=== PATIENT | male | born 2000 | race Caucasian/White ===

== ENCOUNTER 2020-03-27 10:43 | Emergency (ER) | payer BC ==
[2020-03-27] MEDS ORDERED: LIDOCAINE 1% W/EPI 1:100,000 MDV 20 ML VIAL ONE (11:39)
[2020-03-27] MEDS ORDERED: HYDROCODONE/APAP 7.5/325 MG TAB ONE (11:59)
--- NOTE | 2020-03-27 12:24 | RAD REPORT ---
EXAM DESCRIPTION: RAD - Foot Right 3 View - 03/27/2020 11:54 am CLINICAL HISTORY: Right foot pain status post injury FINDINGS: No fracture or dislocation is seen. No radiopaque foreign body seen
--- NOTE | 2020-03-27 12:25 | RAD REPORT ---
EXAM DESCRIPTION: RAD - Foot Left 3 View - 03/27/2020 11:54 am CLINICAL HISTORY: Left Foot pain FINDINGS: No fracture or dislocation is seen. No radiopaque foreign body seen
--- NOTE | 2020-03-27 13:05 | ER ---
Nurse's Notes [facility] Name: William Blum Age: 20 yrs Sex: Male : 2000 Arrival Date: 03/27/2020 Time: 10:46 Bed 2 Private MD: Diagnosis: Puncture wound without foreign body of foot-right;Laceration without foreign body of foot-left Presentation: 03/27 10:49 Chief complaint: Patient states: left foot laceration with glass and stepped on a nail sv on the right foot last night. Coronavirus screen: Client denies travel out of the [place] in the last 14 days. At this time, the client does not indicate any symptoms associated with coronavirus-19. Ebola Screen: No symptoms or risks identified at this time. Risk Assessment: Do you want to hurt yourself or someone else? Patient reports no desire to harm self or others. Onset of symptoms was March 26, 2020. 10:49 Method Of Arrival: Wheelchair sv 10:49 Acuity: BELKIS 3 sv 10:51 Initial Sepsis Screen: Does the patient meet any 2 criteria? No. Patient's initial sv sepsis screen is negative. Does the patient have a suspected source of infection? No. Patient's initial sepsis screen is negative. Historical: - Allergies: 10:50 No Known Allergies; sv - PMHx: 10:50 None; sv - PSHx: 10:50 None; sv - Immunization history:: Adult Immunizations up to date, Last tetanus immunization: up to date. - Social history:: Smoking status: Patient reports the use of cigarette tobacco products, smokes one pack cigarettes per day. Screenin:09 Abuse screen: Denies threats or abuse. Denies injuries from another. Nutritional zb screening: No deficits noted. Tuberculosis screening: No symptoms or risk factors identified. Possible symptoms: None Risk factors: None. Fall Risk None identified. No fall in past 12 months (0 pts). No secondary diagnosis (0 pts). No IV (0 pts). Ambulatory Aid- None/Bed Rest/Nurse Assist (0 pts). Gait- Normal/Bed Rest/Wheelchair (0 pts) Mental Status- Oriented to own ability (0 pts). Total Adame Fall Scale indicates No Risk (0-24 pts). Assessment: 11:00 General: Appears in no apparent distress. uncomfortable, Behavior is cooperative, zb anxious, pt reports stepping on nail to right foot and then 30 min later stepping on glass in left foot both occurred last night. . Pain: Complains of pain in right foot and left foot Pain radiates to right leg Pain began suddenly, Alleviated by rest, Aggravated by increased activity, weight bearing. Neuro: No deficits noted. Level of Consciousness is awake, alert, obeys commands, Oriented to person, place, time, situation. Cardiovascular: No deficits noted. Capillary refill < 3 seconds in bilateral fingers toes. Respiratory: No deficits noted. Airway is patent Respiratory effort is even, unlabored. Derm: Skin is healthy with good turgor. Musculoskeletal: Circulation, motion, and sensation intact. Injury Description: Laceration sustained to ball of left foot is clean, 2.6 to 7.5 cm long, mild bleeding noted. was sustained 12-24 hours ago. a small amount of bleeding noted at this time. Injury Description: Puncture sustained to ball of right foot is superficial, was sustained 12-24 hours ago. Vital Signs: 10:51 BP 129 / 81; Pulse 76; Resp 18; Temp 98.2(O); Pulse Ox 98% ; Weight 81.65 kg; Height 6 sv ft. 0 in. (182.88 cm); 12:20 BP 127 / 78; Pulse 79; Resp 16; Pulse Ox 99% on R/A; zb 10:51 Body Mass Index 24.41 (81.65 kg, 182.88 cm) sv ED Course: 10:46 Patient arrived in ED. ds1 10:49 Arm band placed on. sv 10:50 Triage completed. sv 10:54 Dorys Cheng, RN is Primary Nurse. ll1 10:55 Radha Correia, IVANNA is Primary Nurse. zb 10:59 Dragan Swenson PA is PHCP. cp 10:59 Tha Alfaro MD is Attending Physician. cp 11:10 Patient has correct armband on for positive identification. Fall risk band placed. Bed zb in low position. Call light in reach. Side rails up X 1. 11:10 No provider procedures requiring assistance completed. Patient did not have IV access zb during this emergency room visit. 11:54 XRAY Foot RIGHT 3 View In Process Unspecified. EDMS 11:54 XRAY Foot LEFT 3 View In Process Unspecified. EDMS 13:20 Dressings: Kerlix X 1; left foot non-adherent dressing. Ortho shoe applied to left foot.zb Administered Medications: 11:49 Drug: Hydrocodone-Acetaminophen (7.5 mg-325 mg) 1 tabs Route: PO; zb 12:32 Follow up: Response: No adverse reaction; Pain is decreased zb 12:19 Not Given (pt states tetanus utd): Tetanus-Diphtheria Toxoid Adult 0.5 ml IM once zb 12:19 Drug: Lidocaine-Epinephrine -1%: (1:100,000) 10 ml {Note: administered by SHANTAL wsenson.} zb Volume: 20 ml; Route: Infiltration; 13:15 Follow up: Response: No adverse reaction zb Outcome: 13:04 Discharge ordered by MD. cp 13:20 Discharged to home via wheelchair, with crutches, with significant other. zb 13:20 Condition: good 13:20 Discharge instructions given to patient, significant other, Instructed on discharge instructions, follow up and referral plans. medication usage, crutch walking, wound care, Demonstrated understanding of instructions, follow-up care, medications, wound care, crutch walking, Prescriptions given X 3. 13:21 Patient left the ED. zb Signatures: Dispatcher [employer] EDEdwige Bowser RN RN Melanie Elliott ds1 Dragan Swenson PA PA cp Lewis, Lynsay, RN RN ll1 Radha Correia RN RN zb Corrections: (The following items were deleted from the chart) 12:20 12:19 Lidocaine-Epinephrine -1%: (1:100,000) 10 ml 20 ml Infiltration 20 ml zb zb 12:42 12:41 Discharged to home ambulatory, with family, zb zb 12:42 12:41 Condition: good zb zb 12:42 12:41 Discharge instructions given to patient, family, Instructed on discharge zb instructions, follow up and referral plans. Demonstrated understanding of instructions, follow-up care, zb
--- NOTE | 2020-03-27 13:05 | EDPHYS ---
Physician Documentation [facility] Name: William Blum Age: 20 yrs Sex: Male : 2000 Arrival Date: 03/27/2020 Time: 10:46 Bed 2 Private MD: ED Physician Tha Alfaro HPI: 03/27 11:20 This 20 yrs old Male presents to ER via Wheelchair with complaints of cp Laceration to L Foot, Stepped On Nail R foot. 11:20 The patient presents with an injury. Patient reports puncture wound to right foot after cp stepping on nail early this morning and laceration to left foot after stepping on glass this morning. Historical: - Allergies: 10:50 No Known Allergies; sv - PMHx: 10:50 None; sv - PSHx: 10:50 None; sv - Immunization history:: Adult Immunizations up to date, Last tetanus immunization: up to date. - Social history:: Smoking status: Patient reports the use of cigarette tobacco products, smokes one pack cigarettes per day. ROS: 11:25 Skin: Positive for laceration(s), puncture, of the right foot and left foot. cp 11:25 Constitutional: Negative for body aches, chills, fever. cp 11:25 Cardiovascular: Negative for chest pain. 11:25 Respiratory: Negative for cough. 11:25 Abdomen/GI: Negative for abdominal pain. 11:25 All other systems are negative. Exam: 11:30 Constitutional: The patient appears in no acute distress, alert, awake, well developed, cp well nourished, uncomfortable. 11:30 Head/Face: Normocephalic, atraumatic. cp 11:30 Chest/axilla: Inspection: normal. 11:30 Cardiovascular: Rate: normal. 11:30 Respiratory: the patient does not display signs of respiratory distress, Respirations: normal. 11:30 Skin: injury, laceration(s), the wound is approximately 3 cm(s), of the plantar surface proximal to left great and second toes, puncture(s), that are deep, of the plantar surface proximal to small toe right foot. Vital Signs: 10:51 BP 129 / 81; Pulse 76; Resp 18; Temp 98.2(O); Pulse Ox 98% ; Weight 81.65 kg; Height 6 sv ft. 0 in. (182.88 cm); 12:20 BP 127 / 78; Pulse 79; Resp 16; Pulse Ox 99% on R/A; zb 10:51 Body Mass Index 24.41 (81.65 kg, 182.88 cm) sv Laceration: 13:00 Wound Repair of 3cm ( 1.2in ) subcutaneous laceration to plantar surface of left foot. cp Linear shaped.. Distal neuro/vascular/tendon intact. Anesthesia: Wound infiltrated with 5 mls of 1% lidocaine w/ Epi. Wound prep: Moderate cleansing by me, Wound irrigation by me. Skin closed with 3 4-0 Prolene using loose interupted sutures. Dressed with Bacitracin, 4x4's. Patient tolerated well. MDM: 11:10 Patient medically screened. cp 11:30 Differential diagnosis: fracture, foreign body, cellulitis. cp 13:03 Data reviewed: vital signs, nurses notes, radiologic studies, plain films. cp 13:03 Counseling: I had a detailed discussion with the patient and/or guardian regarding: the cp historical points, exam findings, and any diagnostic results supporting the discharge/admit diagnosis, radiology results, the need for outpatient follow up, a family practitioner, to return to the emergency department if symptoms worsen or persist or if there are any questions or concerns that arise at home. Response to treatment: the patient's symptoms have markedly improved after treatment. 13:08 ED course: No results found for RXs of narcotic medications according to search results cp on [place] prescription monitoring website. 03/27 11:15 Order name: XRAY Foot RIGHT 3 View; Complete Time: 12:28 03/27 12:28 Interpretation: Report reviewed. 03/27 11:15 Order name: XRAY Foot LEFT 3 View; Complete Time: 12:28 03/27 12:29 Interpretation: Reviewed report. 03/27 11:15 Order name: Dressing - Wound; Complete Time: 11:44 03/27 11:15 Order name: Gloves, Sterile; Complete Time: 11:44 03/27 11:15 Order name: Setup Suture Tray; Complete Time: 11:44 03/27 12:06 Order name: Wound Care: please clean and irrigate wounds; Complete Time: 12:32 03/27 13:02 Order name: Wound dressing; Complete Time: 13:15 03/27 13:02 Order name: Crutches; Complete Time: 13:15 cp 03/27 13:02 Order name: Post-op shoe: left foot; Complete Time: 13:14 cp Administered Medications: 11:49 Drug: Hydrocodone-Acetaminophen (7.5 mg-325 mg) 1 tabs Route: PO; zb 12:32 Follow up: Response: No adverse reaction; Pain is decreased zb 12:19 Not Given (pt states tetanus utd): Tetanus-Diphtheria Toxoid Adult 0.5 ml IM once zb 12:19 Drug: Lidocaine-Epinephrine -1%: (1:100,000) 10 ml {Note: administered by SHANTAL alvarez.} zb Volume: 20 ml; Route: Infiltration; 13:15 Follow up: Response: No adverse reaction zb Disposition: 13:30 Chart complete. cp 14:18 Co-signature as Attending Physician, Tha Alfaro MD I agree with the assessment and kdr plan of care. Disposition: 03/27/20 13:04 Discharged to Home. Impression: Puncture wound without foreign body of foot - right, Laceration without foreign body of foot - left. - Condition is Stable. - Discharge Instructions: Laceration Care, Adult, Puncture Wound. - Prescriptions for Levaquin 500 mg Oral Tablet - take 1 tablet by ORAL route once daily for 7 days; 7 tablet. Tramadol 50 mg Oral Tablet - take 1 tablet by ORAL route every 8 hours as needed; 12 tablet. Ibuprofen 800 mg Oral Tablet - take 1 tablet by ORAL route every 8 hours As needed take with food; 30 tablet. - Medication Reconciliation Form, Thank You Letter, Antibiotic Education, Prescription Opioid Use, Work release form form. - Follow up: Private Physician; When: 7 - 10 days; Reason: Staple/Suture removal. - Problem is new. - Symptoms have improved. Signatures: Dispatcher [employer] Edwige Hayes RN RN sv Rittger, Kevin, MD MD kdr Page, Corey, PA PA cp Brown, Zipporah, RN RN zb Corrections: (The following items were deleted from the chart) 13:21 13:04 03/27/2020 13:04 Discharged to Home. Impression: Puncture wound without foreign zb body of foot - right; Laceration without foreign body of foot - left. Condition is Stable. Forms are Medication Reconciliation Form, Thank You Letter, Antibiotic Education, Prescription Opioid Use. Follow up: Private Physician; When: 7 - 10 days; Reason: Staple/Suture removal. Problem is new. Symptoms have improved. cp
[2020-03-27 13:27] VITALS: TEMP 98.2
[2020-03-27 13:28] VITALS: BP 127/78; O2SAT 99
== END 2020-03-27 13:21 | disposition home or self-care (01) ==
LOC: ER 10:43
PROC: 0JQR0ZZ Repair Left Foot Subcutaneous Tissue and Fascia, Open Approach (ICD-10-PCS; principal; 2020-03-27)
DX: S91.312A Laceration without foreign body, left foot, initial encounter (principal); W25.XXXA Contact with sharp glass, initial encounter; Y93.9 Activity, unspecified; Y92.9 Unspecified place or not applicable; F17.210 Nicotine dependence, cigarettes, uncomplicated
CPT/HCPCS: 99284

== ENCOUNTER 2020-07-13 13:23 | Emergency (ER) | payer BC ==
[2020-07-13] MEDS ORDERED: ALBUTEROL INHALER 60 PUFF/8 GM IH ONE (14:31)
[2020-07-13] MEDS ORDERED: IBUPROFEN 400 MG TAB ONE (14:31)
--- NOTE | 2020-07-13 14:34 | RAD REPORT ---
EXAM DESCRIPTION: Maximilian Single View07/13/2020 2:26 pm CLINICAL HISTORY: cough COMPARISON: none FINDINGS: The lungs appear clear of acute infiltrate. The heart is normal size IMPRESSION: No acute abnormalities displayed
--- NOTE | 2020-07-13 15:20 | EDPHYS ---
Physician Documentation [facility] Name: William Blum Age: 20 yrs Sex: Male : 2000 Arrival Date: 07/13/2020 Time: 13:28 Bed 7 Private MD: ED Physician Edinson Montes HPI: 07/13 14:02 This 20 yrs old Male presents to ER via Ambulatory with complaints of pm1 Toothache, Hurts When Breathing, Body Aches. 14:02 The patient presents with pain. The problem is located in the lower right third molar. pm1 Onset: The symptoms/episode began/occurred 2 day(s) ago. Duration: The symptoms are continuous. Modifying factors: The symptoms are alleviated by nothing. Associated signs and symptoms: Pertinent positives: fever, Pertinent negatives: inability to eat, nausea, vomiting. Severity of symptoms: in the emergency department the symptoms. Patient also presenting with cough, pain with deep breathing and coughing. Historical: - Allergies: 13:32 No Known Allergies; ll1 - PMHx: 13:32 Pneumonia; ll1 - PSHx: 13:32 shoulder (pins placed) sx; ll1 - Immunization history:: Flu vaccine is up to date. - Social history:: Smoking status: Patient reports the use of cigarette tobacco products, smokes one pack cigarettes per day. ROS: 14:02 ENT: Negative for injury, pain, and discharge, Neck: Negative for injury, pain, and pm1 swelling, Cardiovascular: Negative for chest pain, palpitations, and edema. 14:02 Abdomen/GI: Negative for abdominal pain, nausea, vomiting, diarrhea, and constipation, Back: Negative for injury and pain, MS/Extremity: Negative for injury and deformity, Skin: Negative for injury, rash, and discoloration, Neuro: Negative for headache, weakness, numbness, tingling, and seizure. 14:02 Constitutional: Positive for body aches, chills, fever, Negative for poor PO intake. 14:02 Respiratory: Positive for cough, Negative for shortness of breath. Exam: 14:02 Constitutional: This is a well developed, well nourished patient who is awake, alert, pm1 and in no acute distress. Head/Face: Normocephalic, atraumatic. 14:02 Cardiovascular: Regular rate and rhythm with a normal S1 and S2. No gallops, murmurs, or rubs. Normal PMI, no JVD. No pulse deficits. Respiratory: Lungs have equal breath sounds bilaterally, clear to auscultation and percussion. No rales, rhonchi or wheezes noted. No increased work of breathing, no retractions or nasal flaring. Back: No spinal tenderness. No costovertebral tenderness. Full range of motion. Skin: Warm, dry with normal turgor. Normal color with no rashes, no lesions, and no evidence of cellulitis. MS/ Extremity: Pulses equal, no cyanosis. Neurovascular intact. Full, normal range of motion. 14:02 ENT: External ear(s): are unremarkable, Ear canal(s): are normal, Mouth: is normal, no abscess, no drooling, (-) trismus Posterior pharynx: no acute changes, Dental exam: dental caries, that is moderate, specifically in the lower right third molar (#32). 14:02 Neuro: Exam negative for acute changes, Orientation: is normal, Mentation: is normal, Motor: is normal, moves all fours. Vital Signs: 13:33 BP 136 / 77; Pulse 116; Resp 17; Temp 100.6; Pulse Ox 100% ; Weight 81.65 kg; Height 6 ll1 ft. 1 in. (185.42 cm); Pain 8/10; 14:20 Pulse 101; Resp 18; Pulse Ox 100% on R/A; sv 15:30 Pulse 97; Resp 16; Pulse Ox 99% on R/A; sv 13:33 Body Mass Index 23.75 (81.65 kg, 185.42 cm) ll1 MDM: 13:47 Patient medically screened. pm1 13:51 ED course: Patient refusing swabs for covid and flu. Does not believe it is covid since pm1 he has had covid. 15:19 Data reviewed: vital signs. Data interpreted: Pulse oximetry: on room air is 100 %. pm1 Interpretation: normal. Counseling: I had a detailed discussion with the patient and/or guardian regarding: the historical points, exam findings, and any diagnostic results supporting the discharge/admit diagnosis, radiology results, the need for outpatient follow up, to return to the emergency department if symptoms worsen or persist or if there are any questions or concerns that arise at home. 07/13 13:50 Order name: Chest Single View XRAY pm1 07/13 14:34 Order name: RAD; Complete Time: 15:10 EDMS Administered Medications: 14:19 Drug: Albuterol HFA Inhaler 2 puffs Route: Inhalation; sv 14:19 Drug: Ibuprofen 800 mg Route: PO; sv 15:02 Follow up: Response: No adverse reaction sv 15:31 Drug: predniSONE 60 mg Route: PO; sv 15:31 Follow up: Response: Medication administered at discharge. sv Disposition: 07/13/20 15:20 Discharged to Home. Impression: Acute upper respiratory infection, unspecified, Dental pain. - Condition is Stable. - Discharge Instructions: Dental Pain, Upper Respiratory Infection, Adult. - Prescriptions for Augmentin 875- 125 mg Oral Tablet - take 1 tablet by ORAL route every 12 hours for 10 days; 20 tablet. Tessalon Perles 100 mg Oral Capsule - take 1 capsule by ORAL route every 8 hours As needed; 15 capsule. Medrol (Bulmaro) 4 mg Oral Tablets, Dose Pack - take 1 tablet by ORAL route as directed - follow package instructions; 1 packet. Albuterol Sulfate 90 mcg/actuation - inhale 1-2 puff by INHALATION route every 4-6 hours; 1 Inhaler. - Medication Reconciliation Form, Thank You Letter, Antibiotic Education, Prescription Opioid Use form. - Follow up: Emergency Department; When: As needed; Reason: Worsening of condition. Follow up: Private Physician; When: 2 - 3 days; Reason: Recheck today's complaints, Continuance of care, Re-evaluation by your physician. - Problem is new. - Symptoms have improved. Addendum: 07/18/2020 19:19 Co-signature as Attending Physician, Edinson Montes MD I agree with the assessment and t w4 plan of care. Signatures: Dispatcher [employer] EDMS Edwieg Gaxiola RN RN sv Mark Conway, COLLECTIONS ANALYST COLLECTIONS ANALYST pm1 Edinson Montes MD MD tw4 Dorys Cheng RN RN ll1 Corrections: (The following items were deleted from the chart) 07/13 15:33 15:20 07/13/2020 15:20 Discharged to Home. Impression: Acute upper respiratory sv infection, unspecifiedDental pain. Condition is Stable. Forms are Medication Reconciliation Form, Thank You Letter, Antibiotic Education, Prescription Opioid Use. Follow up: Emergency Department; When: As needed; Reason: Worsening of condition. Follow up: Private Physician; When: 2 - 3 days; Reason: Recheck today's complaints, Continuance of care, Re-evaluation by your physician. Problem is new. Symptoms have improved. pm1
--- NOTE | 2020-07-13 15:20 | ER ---
Nurse's Notes [facility] Name: William Blum Age: 20 yrs Sex: Male : 2000 Arrival Date: 07/13/2020 Time: 13:28 Bed 7 Private MD: Diagnosis: Dental pain;Acute upper respiratory infection, unspecified Presentation: 07/13 13:33 Chief complaint: Patient states: 1. Cough, body aches, hurts to breathe for 3 days. Has ll1 had fever 101.8 at home. 2. R lower jaw tooth pain and swelling for 2 days. Coronavirus screen: Client denies travel out of the [place] in the last 14 days. cough unrelated to allergies, difficulty breathing, fever, shortness of breath, Client presents with at least one sign or symptom that may indicate coronavirus-19. Ebola Screen: Patient denies travel to an Ebola-affected area in the 21 days before illness onset. Initial Sepsis Screen: Does the patient meet any 2 criteria? HR > 90 bpm. No. Patient's initial sepsis screen is negative. Does the patient have a suspected source of infection? Yes: Productive cough/pneumonia. Risk Assessment: Do you want to hurt yourself or someone else? Patient reports no desire to harm self or others. Onset of symptoms was July 10, 2020. 13:33 Method Of Arrival: Ambulatory [facility] 13:33 Acuity: BELKIS 3 ll1 Historical: - Allergies: 13:32 No Known Allergies; ll1 - PMHx: 13:32 Pneumonia; ll1 - PSHx: 13:32 shoulder (pins placed) sx; ll1 - Immunization history:: Flu vaccine is up to date. - Social history:: Smoking status: Patient reports the use of cigarette tobacco products, smokes one pack cigarettes per day. Screenin:15 Abuse screen: Denies threats or abuse. Denies injuries from another. Nutritional sv screening: No deficits noted. Tuberculosis screening: No symptoms or risk factors identified. Fall Risk None identified. Assessment: 14:15 General: Appears in no apparent distress. uncomfortable, slender, well developed, sv Behavior is calm, cooperative, appropriate for age. Pain: Complains of pain in chest Pain currently is 8 out of 10 on a pain scale. Is intermittent, chronic, Aggravated by with breathing. Neuro: Level of Consciousness is awake, alert, obeys commands, Oriented to person, place, time, situation, Moves all extremities. Full function. Respiratory: Respiratory effort is even, unlabored, Respiratory pattern is regular, symmetrical. EENT: Reports pain dental pain. Derm: Skin is normal. Musculoskeletal: Range of motion: intact in all extremities. 15:31 Reassessment: Patient appears in no apparent distress at this time. No changes from sv previously documented assessment. Patient and/or family updated on plan of care and expected duration. Pain level reassessed. Patient is alert, oriented x 3, equal unlabored respirations, skin warm/dry/pink. Vital Signs: 13:33 BP 136 / 77; Pulse 116; Resp 17; Temp 100.6; Pulse Ox 100% ; Weight 81.65 kg; Height 6 ll1 ft. 1 in. (185.42 cm); Pain 8/10; 14:20 Pulse 101; Resp 18; Pulse Ox 100% on R/A; sv 15:30 Pulse 97; Resp 16; Pulse Ox 99% on R/A; sv 13:33 Body Mass Index 23.75 (81.65 kg, 185.42 cm) ll1 ED Course: 13:28 Patient arrived in ED. rg4 13:32 Arm band placed on. ll1 13:36 Triage completed. ll1 13:39 Mark Conway NP is PHCP. pm1 13:39 Edinson Montes MD is Attending Physician. pm1 14:11 Edwige Gaxiola, IVANNA is Primary Nurse. sv 14:15 Patient has correct armband on for positive identification. Bed in low position. Call sv light in reach. Pulse ox on. Door closed. Head of bed elevated. 15:02 Chest Single View XRAY Sent. sv 15:31 No provider procedures requiring assistance completed. Patient did not have IV access sv during this emergency room visit. Administered Medications: 14:19 Drug: Albuterol HFA Inhaler 2 puffs Route: Inhalation; sv 14:19 Drug: Ibuprofen 800 mg Route: PO; sv 15:02 Follow up: Response: No adverse reaction sv 15:31 Drug: predniSONE 60 mg Route: PO; sv 15:31 Follow up: Response: Medication administered at discharge. sv Outcome: 15:20 Discharge ordered by . pm1 15:32 Discharged to home ambulatory. sv 15:32 Condition: stable 15:32 Discharge instructions given to patient, Instructed on discharge instructions, follow up and referral plans. no drinking with medication, no driving heavy equipment, medication usage, Demonstrated understanding of instructions, follow-up care, medications, Prescriptions given X 4. 15:33 Patient left the ED. sv Signatures: Edwige Gaxiola, RN RN sv Mark Conway, POPPY RN RELIEF CHARGE pm1 Fatimah Ortiz rg4 Dorys Cheng RN RN ll1
[2020-07-13 15:41] VITALS: BP 136/77; TEMP 100.6
[2020-07-13] MEDS ORDERED: predniSONE 20 MG TAB ONE (15:43)
[2020-07-13 15:44] VITALS: O2SAT 99
== END 2020-07-13 15:33 | disposition home or self-care (01) ==
LOC: ER 13:23
DX: J06.9 Acute upper respiratory infection, unspecified (principal); K08.89 Other specified disorders of teeth and supporting structures; F17.210 Nicotine dependence, cigarettes, uncomplicated; Z53.29 Procedure and treatment not carried out because of patient's decision for other reasons
CPT/HCPCS: 71045; 99284; J7512

== ENCOUNTER 2020-07-17 08:03 | Emergency (ER) | payer BC ==
--- NOTE | 2020-07-17 08:32 | EDPHYS ---
Physician Documentation [facility] Name: William Blum Age: 20 yrs Sex: Male : 2000 Arrival Date: 07/17/2020 Time: 08:06 Bed Waiting Private MD: VIKTORIYA Physician Dragan Nunez HPI: 07/17 08:24 This 20 yrs old Male presents to ER via Ambulatory with complaints of Dental callum Pain, Sore Throat. 08:24 The patient presents with sore throat. callum 08:26 The patient describes throat pain as constant, raw. Onset: The symptoms/episode callum began/occurred 3 day(s) ago. The patient presents with pain, redness, swelling. The problem is located in the lower right third molar. Duration: The symptoms are continuous, and are steadily getting worse. Modifying factors: The symptoms are alleviated by nothing, the symptoms are aggravated by chewing. Severity of symptoms: At their worst the symptoms were mild, moderate, in the emergency department the symptoms are unchanged. Associated signs and symptoms: The patient has no apparent associated signs or symptoms. Historical: - Allergies: 08:17 No Known Allergies; tl1 - PMHx: 08:17 Pneumonia; tl1 - PSHx: 08:17 shoulder (pins placed) sx; tl1 - Immunization history:: Adult Immunizations up to date. - Social history:: Smoking status: Patient reports the use of cigarette tobacco products, smokes one-half pack cigarettes per day. - Family history:: not pertinent. ROS: 08:26 Constitutional: Negative for fever, chills, and weight loss, Eyes: Negative for injury, callum pain, redness, and discharge, Neck: Negative for injury, pain, and swelling, Cardiovascular: Negative for chest pain, palpitations, and edema, Respiratory: Negative for shortness of breath, cough, wheezing, and pleuritic chest pain, Abdomen/GI: Negative for abdominal pain, nausea, vomiting, diarrhea, and constipation, Back: Negative for injury and pain, : Negative for injury, bleeding, discharge, and swelling, MS/Extremity: Negative for injury and deformity, Skin: Negative for injury, rash, and discoloration, Neuro: Negative for headache, weakness, numbness, tingling, and seizure, Psych: Negative for depression, anxiety, suicide ideation, homicidal ideation, and hallucinations, Allergy/Immunology: Negative for hives, rash, and allergies, Endocrine: Negative for neck swelling, polydipsia, polyuria, polyphagia, and marked weight changes, Hematologic/Lymphatic: Negative for swollen nodes, abnormal bleeding, and unusual bruising. 08:26 ENT: Positive for sore throat, Teeth pain Exam: 08:26 Constitutional: This is a well developed, well nourished patient who is awake, alert, callum and in no acute distress. Eyes: Pupils equal round and reactive to light, extra-ocular motions intact. Lids and lashes normal. Conjunctiva and sclera are non-icteric and not injected. Cornea within normal limits. Periorbital areas with no swelling, redness, or edema. Neck: Trachea midline, no thyromegaly or masses palpated, and no cervical lymphadenopathy. Supple, full range of motion without nuchal rigidity, or vertebral point tenderness. No Meningismus. Chest/axilla: Normal chest wall appearance and motion. Nontender with no deformity. No lesions are appreciated. Cardiovascular: Regular rate and rhythm with a normal S1 and S2. No gallops, murmurs, or rubs. Normal PMI, no JVD. No pulse deficits. Respiratory: Lungs have equal breath sounds bilaterally, clear to auscultation and percussion. No rales, rhonchi or wheezes noted. No increased work of breathing, no retractions or nasal flaring. Abdomen/GI: Soft, non-tender, with normal bowel sounds. No distension or tympany. No guarding or rebound. No evidence of tenderness throughout. Back: No spinal tenderness. No costovertebral tenderness. Full range of motion. Skin: Warm, dry with normal turgor. Normal color with no rashes, no lesions, and no evidence of cellulitis. MS/ Extremity: Pulses equal, no cyanosis. Neurovascular intact. Full, normal range of motion. Neuro: Awake and alert, GCS 15, oriented to person, place, time, and situation. Cranial nerves II-XII grossly intact. Motor strength 5/5 in all extremities. Sensory grossly intact. Cerebellar exam normal. Normal gait. Psych: Awake, alert, with orientation to person, place and time. Behavior, mood, and affect are within normal limits. 08:26 Head/face: Noted is swelling, that is moderate, of the lower right third molar. Vital Signs: 08:15 BP 134 / 89; Pulse 86; Resp 16; Temp 99; Pulse Ox 99% ; Pain 8/10; tl1 MDM: 08:29 Differential diagnosis: dental caries, gingivitis, group A strep tonsillitis, callum pharyngitis. Data reviewed: vital signs, nurses notes. Data interpreted: threat monitoring analyst: rate is 86 beats/min, rhythm is regular. Test interpretation: by ED physician or midlevel provider:. Counseling: I had a detailed discussion with the patient and/or guardian regarding: the historical points, exam findings, and any diagnostic results supporting the discharge/admit diagnosis, lab results, radiology results, the need for outpatient follow up. 08:32 Patient medically screened. callum Administered Medications: No medications were administered Disposition: 07/17/20 08:32 Discharged to Home. Impression: Dental caries, Gingivitis and periodontal diseases. - Condition is Stable. - Discharge Instructions: Dental Pain, Dental Pain, [id number]. - Prescriptions for Ibuprofen 600 mg Oral Tablet - take 1 tablet by ORAL route every 6 hours As needed take with food; 20 tablet. Tylenol- Codeine #3 300-30 mg Oral Tablet - take 2 tablets by ORAL route every 6 hours As needed; 20 tablet. - Medication Reconciliation Form, Thank You Letter, Antibiotic Education, Prescription Opioid Use form. - Follow up: Private Physician; When: 2 - 3 days; Reason: Recheck today's complaints, Continuance of care, Re-evaluation by your physician. - Problem is new. - Symptoms have improved. Signatures: Dragan Nunez MD MD cha Lasagna, Tonya RN RN tl1 Karla Treviño RN RN hb Corrections: (The following items were deleted from the chart) 08:38 08:32 07/17/2020 08:32 Discharged to Home. Impression: Dental caries; Gingivitis and hb periodontal diseases. Condition is Stable. Forms are Medication Reconciliation Form, Thank You Letter, Antibiotic Education, Prescription Opioid Use. Follow up: Private Physician; When: 2 - 3 days; Reason: Recheck today's complaints, Continuance of care, Re-evaluation by your physician. Problem is new. Symptoms have improved. callum
--- NOTE | 2020-07-17 08:32 | ER ---
Nurse's Notes [facility] Name: William Blum Age: 20 yrs Sex: Male : 2000 Arrival Date: 07/17/2020 Time: 08:06 Bed Waiting Private MD: Diagnosis: Dental caries;Gingivitis and periodontal diseases Presentation: 07/17 08:15 Chief complaint: Seen in ED 4 days ago for right bottom molar pain, reports antibiotics tl1 are not working and he feels worse, c/o right sided neck pain and swelling. Coronavirus screen: At this time, the client does not indicate any symptoms associated with coronavirus-19. Ebola Screen: No symptoms or risks identified at this time. Initial Sepsis Screen: Does the patient meet any 2 criteria? No. Patient's initial sepsis screen is negative. Does the patient have a suspected source of infection? No. Patient's initial sepsis screen is negative. Risk Assessment: Do you want to hurt yourself or someone else? Patient reports no desire to harm self or others. Onset of symptoms was July 13, 2020. 08:15 Method Of Arrival: Ambulatory tl1 08:15 Acuity: BELKIS 4 tl1 Triage Assessment: 08:17 General: Appears in no apparent distress. Behavior is calm, cooperative. Pain: Pain tl1 currently is 8 out of 10 on a pain scale. EENT: Reports right sided lower molar pain. Neuro: Level of Consciousness is awake, alert, obeys commands, Oriented to person, place, time, situation. Cardiovascular: Capillary refill < 3 seconds Patient's skin is warm and dry. Respiratory: Respiratory effort is even, unlabored, Respiratory pattern is regular, symmetrical. Historical: - Allergies: 08:17 No Known Allergies; tl1 - PMHx: 08:17 Pneumonia; tl1 - PSHx: 08:17 shoulder (pins placed) sx; tl1 - Immunization history:: Adult Immunizations up to date. - Social history:: Smoking status: Patient reports the use of cigarette tobacco products, smokes one-half pack cigarettes per day. - Family history:: not pertinent. Screenin:18 Abuse screen: Denies threats or abuse. Denies injuries from another. Nutritional tl1 screening: No deficits noted. Tuberculosis screening: No symptoms or risk factors identified. Fall Risk None identified. Assessment: 08:15 Reassessment: Dr. Nunez in triage to evaluate patient. tl1 08:18 General: see triage assessment . tl1 Vital Signs: 08:15 BP 134 / 89; Pulse 86; Resp 16; Temp 99; Pulse Ox 99% ; Pain 8/10; tl1 ED Course: 08:06 Patient arrived in ED. ds1 08:07 Dragan Nunez MD is Attending Physician. [facility] 08:17 Triage completed. tl1 08:18 Arm band placed on. tl1 08:18 Patient has correct armband on for positive identification. Bed in low position. Call tl1 light in reach. Side rails up X 1. 08:38 Karla Trevñio, RN is Primary Nurse. hb Administered Medications: No medications were administered Outcome: 08:32 Discharge ordered by . [facility] 08:38 Patient left the ED. hb Signatures: Dragan Nunez MD MD cha Sanford, Demi ds1 Nereida No RN RN tl1 Karla Treviño, RN RN hb
[2020-07-17 08:43] VITALS: BP 134/89; TEMP 99; O2SAT 99
== END 2020-07-17 08:38 | disposition home or self-care (01) ==
LOC: ER 08:03
DX: K05.10 Chronic gingivitis, plaque induced (principal); F17.210 Nicotine dependence, cigarettes, uncomplicated
CPT/HCPCS: 99281

== ENCOUNTER 2024-09-21 08:42 | Emergency (ER) | payer BC, SELFPAY ==
[2024-09-21 10:11] LABS: Absolute Eosinophils 0.1 K/uL (0-0.5); Absolute Lymphocytes (CBC) 1.6 K/uL (0.7-4.9); Absolute Monocytes 0.7 K/uL (0.1-1.3); Absolute Neutrophil 3.6 K/uL (1.8-8.0); Basophils % 0.8 % (0-1.3); Eosinophils % 1.2 % (0-4.4); Hematocrit 44.9 % (39.6-49.0); Hemoglobin 15.9 g/dL (13.6-17.9); Lymphocytes % 26.4 % (15.3-44.8); MCHC 35.4 g/dL (32.0-36.0); MCV 87.7 fL (80-100); MPV 6.9 fL (7.6-11.3); Monocytes % 11.4 % (3.3-12.3); Neutrophils % 60.2 % (41.7-73.7); Nucleated Red Blood Cells % 0.1 % (0-0); Platelets 209 thou/uL (152-406); RBC Red Blood Cell Count 5.12 M/uL (4.33-5.43); Red Cell Distribution Width 12.8 % (12.1-15.2)
[2024-09-21 10:29] LABS: Specific Gravity 1.017 (1.005-1.030); Sqamous Epithelial <5 /HPF (None Seen); Urine Bacteria None Seen /HPF (<20); Urine Bilirubin NEGATIVE (Negative); Urine Blood Negative (Negative); Urine Clarity Extremely Turbid (Clear); Urine Color Light-Orange (Yellow); Urine Culture Reflex Order NOT NEEDED; Urine Glucose 2+ (Negative); Urine Ketones NEGATIVE (Negative); Urine Microscopic Reflex YN ORDER UMIC; Urine Mucus Slight /HPF (None Seen); Urine Nitrite NEGATIVE (Negative); Urine Protein NEGATIVE (Negative); Urine RBC None Seen /HPF (None Seen); Urine Urobilinogen Normal (Normal); Urine WBC <5 /HPF (<5); Urine pH 5.5 (5.0-7.0)
[2024-09-21 10:31] LABS: Albumin 3.4 g/dL (3.4-5.0); Albumin/Globulin Ratio 1.1 (1.1-1.8); Anion Gap 7.9 mEq/L (5.0-15.0); Bilirubin Total 0.5 mg/dL (0.2-1.0); Globulin 3.2 g/dL (2.3-3.5); Potassium 3.9 mEq/L (3.5-5.1); Protein, Total 6.6 g/dL (6.4-8.2)
[2024-09-21] MEDS ORDERED: ONDANSETRON 4 MG/2 ML VIAL ONE (10:33)
[2024-09-21] MEDS ORDERED: MORPHINE 4 MG/ML SYR ONE (10:33)
[2024-09-21] MEDS ORDERED: NA CHLORIDE 0.9% 1,000 ML ONE (10:34)
[2024-09-21] MEDS ORDERED: FAMOTIDINE 20 MG/2 ML VIAL IV ONE (10:34)
--- NOTE | 2024-09-21 11:30 | RAD REPORT ---
EXAMINATION: CT ABDOMEN AND PELVIS WITH CONTRAST CLINICAL INDICATION: Abdominal pain TECHNIQUE: CT abdomen and pelvis was performed, after the administration of 100 cc Isovue-300.. Sagit courtney and coronal reconstructions were obtained. One or more of the following dose reduction techniques were used: Automated exposure control, adjustment of the mA and kV according to patient si ze, and iterative reconstruction. Unless otherwise specified, incidental findings do not require dedicated imaging follow-up. [id number]. Oral contrast was not given which limits evaluation of bowel and appendix. COMPARISON: .None FINDINGS: Liver, spleen, pancreas, adrenals and kidneys appear unremarkable No evidence of diverticulitis. Normal appendix. : IMPRESSION: No acute abnormality displayed
--- NOTE | 2024-09-21 11:34 | EDPHYS ---
Physician Documentation [facility] Name: William Blum Age: 24 yrs Sex: Male : 2000 Arrival Date: 09/21/2024 Time: 08:42 Bed 14 Private MD: ED Physician Dragan Nunez HPI: 09/21 11:24 This 24 yrs old Male presents to ER via Ambulatory with complaints of Pelvic callum Pain, LT Ankle Swelling. 11:24 The patient presents with abdominal pain in the lower abdomen. Onset: The callum symptoms/episode began/occurred 3 day(s) ago. The symptoms do not radiate. Associated signs and symptoms: none. Modifying factors: The symptoms are alleviated by nothing. Severity of pain: At its worst the pain was mild in the emergency department the pain is unchanged. The patient has not experienced similar symptoms in the past. Historical: - Allergies: 09:03 No Known Allergies; ap3 - Home Meds: 09:03 None [Active]; ap3 - PMHx: 09:03 Pneumonia; ap3 - Immunization history:: Client reports having NOT received the Covid vaccine. Flu vaccine is not up to date. - Infectious Disease History:: Denies. - Social history:: Smoking status: Patient reports the use of cigarette tobacco products, smokes one pack cigarettes per day. Reported history of juuling and/or vaping. - Family history:: not pertinent. ROS: 11:24 Constitutional: Negative for fever, chills, and weight loss, Eyes: Negative for injury, callum pain, redness, and discharge, ENT: Negative for injury, pain, and discharge, Neck: Negative for injury, pain, and swelling, Cardiovascular: Negative for chest pain, palpitations, and edema, Respiratory: Negative for shortness of breath, cough, wheezing, and pleuritic chest pain, Back: Negative for injury and pain, : Negative for injury, bleeding, discharge, and swelling, MS/Extremity: Negative for injury and deformity, Skin: Negative for injury, rash, and discoloration, Neuro: Negative for headache, weakness, numbness, tingling, and seizure, Psych: Negative for depression, anxiety, suicide ideation, homicidal ideation, and hallucinations, Allergy/Immunology: Negative for hives, rash, and allergies, Endocrine: Negative for neck swelling, polydipsia, polyuria, polyphagia, and marked weight changes, Hematologic/Lymphatic: Negative for swollen nodes, abnormal bleeding, and unusual bruising, 11:24 Abdomen/GI: Positive for abdominal pain, Exam: 11:24 Constitutional: This is a well developed, well nourished patient who is awake, alert, callum and in no acute distress. Head/Face: Normocephalic, atraumatic. Eyes: Pupils equal round and reactive to light, extra-ocular motions intact. Lids and lashes normal. Conjunctiva and sclera are non-icteric and not injected. Cornea within normal limits. Periorbital areas with no swelling, redness, or edema. ENT: Nares patent. No nasal discharge, no septal abnormalities noted. Tympanic membranes are normal and external auditory canals are clear. Oropharynx with no redness, swelling, or masses, exudates, or evidence of obstruction, uvula midline. Mucous membranes moist. Neck: Trachea midline, no thyromegaly or masses palpated, and no cervical lymphadenopathy. Supple, full range of motion without nuchal rigidity, or vertebral point tenderness. No Meningismus. Chest/axilla: Normal chest wall appearance and motion. Nontender with no deformity. No lesions are appreciated. Cardiovascular: Regular rate and rhythm with a normal S1 and S2. No gallops, murmurs, or rubs. Normal PMI, no JVD. No pulse deficits. Respiratory: Lungs have equal breath sounds bilaterally, clear to auscultation and percussion. No rales, rhonchi or wheezes noted. No increased work of breathing, no retractions or nasal flaring. Back: No spinal tenderness. No costovertebral tenderness. Full range of motion. Male : Normal genitalia with no discharge or lesions. Skin: Warm, dry with normal turgor. Normal color with no rashes, no lesions, and no evidence of cellulitis. MS/ Extremity: Pulses equal, no cyanosis. Neurovascular intact. Full, normal range of motion., bilateral aka Neuro: Awake and alert, GCS 15, oriented to person, place, time, and situation. Cranial nerves II-XII grossly intact. Motor strength 5/5 in all extremities. Sensory grossly intact. Cerebellar exam normal. Normal gait. Psych: Awake, alert, with orientation to person, place and time. Behavior, mood, and affect are within normal limits. 11:24 Abdomen/GI: Inspection: abdomen appears normal, Bowel sounds: normal, Palpation: mild abdominal tenderness, moderate abdominal tenderness, in the right lower quadrant and left lower quadrant, 11:24 Musculoskeletal/extremity: DVT Exam: No signs of deep vein thrombosis. no pain, no swelling, no tenderness, negative Homans' sign noted on exam, no appreciated bluish discoloration, no erythema, no increased warmth, Vital Signs: 09:01 BP 128 / 83; Pulse 98; Resp 17; Temp 98.3; Pulse Ox 98% ; Weight 97.52 kg; Height 5 ft. ap3 11 in. ; Pain 5/10; 11:08 BP 130 / 85; Pulse 89; Resp 15; Pulse Ox 99% ; cm10 11:30 BP 135 / 89; Pulse 73; Resp 15; Pulse Ox 97% ; cm10 09:01 Body Mass Index 29.99 (97.52 kg, 180.34 cm) ap3 09:01 Pain Scale: Adult ap3 MDM: 09:14 Medical Screening Exam initiated callum 11:26 Differential diagnosis: Cholelithiasis, diverticulitis, gastritis, gastroesophageal callum reflux disease, GI Bleed, non-specific abd pain, pancreatitis, Peptic Ulcer Disease, Ureterolithiasis, urinary tract infection. Data reviewed: vital signs, nurses notes, lab test result(s), radiologic studies, plain films. Consideration of Admission/Observation Escalation of care including admission/observation considered. I considered the following discharge prescriptions or medication management in the emergency department Medications were administered in the Emergency Department. See MAR. Independent interpretation of the following test(s) in the Emergency Department CT Scan: My interpretation is ct abd pel. Test considered but Not performed: EKG: no ekg. Care significantly affected by the following chronic conditions: pna. 09/21 09:44 Order name: CBC with Diff; Complete Time: 10:24 [facility] 09/21 09:44 Order name: CMP; Complete Time: 10:49 [facility] 09/21 09:44 Order name: Lipase; Complete Time: 10:49 [facility] 09/21 09:44 Order name: Urinalysis w/ reflexes; Complete Time: 10:49 [facility] 09/21 09:44 Order name: CT Abd/Pelvis - IV Contrast Only [facility] 09/21 09:44 Order name: IV Saline Lock; Complete Time: 09:55 [facility] 09/21 09:44 Order name: Labs collected and sent; Complete Time: 10:05 callum Administered Medications: 11:08 Drug: Famotidine IVP 20 mg IVP once; dilute with 10 mL 0.9% NaCl; give over 2 minutes cm10 Route: IVP; Site: right antecubital; 12:21 Follow up: Response: No adverse reaction cm10 11:08 Drug: Ondansetron IVP 4 mg IVP once; over 2 minutes Route: IVP; Site: right antecubital;cm10 12:21 Follow up: Response: No adverse reaction cm10 11:08 Drug: NS 0.9% IV 1000 ml IV at 1 bolus Per protocol; to be given as a bolus over 60 cm10 minutes Route: IV; Rate: 1 bolus; Site: right antecubital; 12:21 Follow up: Response: No adverse reaction; IV Status: Completed infusion; IV Intake: cm10 1000ml 11:09 Drug: morphine IVP or IV 4 mg IVP once over 4 mins Route: IVP; Infused Over: 4 mins; cm10 Site: right antecubital; 12:21 Follow up: Response: No adverse reaction cm10 Disposition Summary: 09/21/24 11:33 Discharge Ordered Notes: Location: Home callum Problem: new callum Symptoms: have improved callum Condition: Stable callum Diagnosis - Abdominal pain, Generalized callum - Pain in ankle and joints of foot callum Followup: callum - With: Private Physician - When: 2 - 3 days - Reason: Recheck today's complaints, Continuance of care, Re-evaluation by your physician Discharge Instructions: - Discharge Summary Sheet callum - Abdominal Pain, Adult callum - Abdominal Pain, Adult, [id number] [facility] Forms: - Medication Reconciliation Form [facility] - Antibiotic Education callum - Prescription Opioid Use callum - Patient Portal Instructions [facility] - Leadership Thank You Letter [facility] - Work release form cm10 Prescriptions: - Pepcid 20 mg Oral Tablet - take 1 tablet ORAL route every 12 hours for 10 days; 20 tablet; Refills: 0, [facility] Product Selection Permitted - Zofran 4 mg Oral Tablet - take 1 tablet ORAL route every 12 hours As needed; 20 tablet; Refills: 0, [facility] Product Selection Permitted - dicyclomine 20 mg Oral tablet - take 1 tablet ORAL route 4 times per day; 28 tablet; Refills: 0, Product [facility] Selection Permitted Signatures: Dispatcher [employer] EDMS Dragan Nunez MD MD cha Prokisch, Amanda RN RN ap3 Camille Farley RN RN cm10 Corrections: (The following items were deleted from the chart) : 09:44 CBC+H.LAB.BRZ ordered. EDMS EDMS 09:44 COMPREHENSIVE METABOLIC PANEL+C.LAB.BRZ ordered. EDMS EDMS : 09:44 LIPASE+C.LAB.BRZ ordered. EDMS EDMS 09:44 Urinalysis+U.LAB.BRZ ordered. EDMS EDMS : 09:44 Abdomen Pelvis W Con+CT.RAD.BRZ ordered. EDMS EDMS
--- NOTE | 2024-09-21 11:34 | ER ---
Nurse's Notes [facility] Name: William Blum Age: 24 yrs Sex: Male : 2000 Arrival Date: 09/21/2024 Time: 08:42 Bed 14 Private MD: Diagnosis: Abdominal pain, Generalized;Pain in ankle and joints of foot Presentation: 09/21 09:01 Chief complaint: Patient states: he is having pain above both hips that started 2 days ap3 ago. patient also reports yesterday his left thumb was swollen, which has resolved and then this morning his left ankle is swollen and painful. patient currently rates his pain as a 5/10 on the pain scale. Coronavirus screen: At this time, the client does not indicate any symptoms associated with coronavirus-19. Ebola Screen: No symptoms or risks identified at this time. Initial Sepsis Screen: Does the patient meet any 2 criteria? No. Patient's initial sepsis screen is negative. Does the patient have a suspected source of infection? No. Patient's initial sepsis screen is negative. Risk Assessment: Do you want to hurt yourself or someone else? Patient reports no desire to harm self or others. Onset of symptoms was September 19, 2024. 09:01 Method Of Arrival: Ambulatory ap3 09:01 Acuity: BELKIS 3 ap3 Triage Assessment: 09:04 General: Appears in no apparent distress. Behavior is calm, cooperative, appropriate ap3 for age. Pain: Complains of pain in pelvis and left foot. Neuro: Level of Consciousness is awake, alert, obeys commands, Oriented to person, place, time, situation. Cardiovascular: Patient's skin is warm and dry. Respiratory: Airway is patent Respiratory effort is even, unlabored, Respiratory pattern is regular, symmetrical. Historical: - Allergies: 09:03 No Known Allergies; ap3 - Home Meds: 09:03 None [Active]; ap3 - PMHx: 09:03 Pneumonia; ap3 - Immunization history:: Client reports having NOT received the Covid vaccine. Flu vaccine is not up to date. - Infectious Disease History:: Denies. - Social history:: Smoking status: Patient reports the use of cigarette tobacco products, smokes one pack cigarettes per day. Reported history of juuling and/or vaping. - Family history:: not pertinent. Screenin:04 [facility] ED Fall Risk Assessment (Adult) History of falling in the last 3 months, ap3 including since admission No falls in past 3 months (0 pts) Confusion or Disorientation No (0 pts) Intoxicated or Sedated No (0 pts) Impaired Gait No (0 pts) Mobility Assist Device Used No (0 pt) Altered Elimination No (0 pt) Score/Fall Risk Level 0 - 2 = Low Risk Oriented to surroundings, Maintained a safe environment, Educated pt \T\ family on fall prevention, incl call for assistance when getting out of bed, Assessed \T\ reinforced patient's understanding of fall precautions, Hourly rounding (assess needs \T\ fall precautionary measures) done, Used ambulatory aids as needed (educated on \T\ assisted with). Abuse screen: Denies threats or abuse. Nutritional screening: No deficits noted. Tuberculosis screening: No symptoms or risk factors identified. Assessment: 11:08 General: Appears in no apparent distress. comfortable, Behavior is calm, cooperative. cm10 Neuro: No deficits noted. Level of Consciousness is awake, alert, obeys commands, Oriented to person, place, time, situation, Appropriate for age. Respiratory: No deficits noted. Airway is patent Respiratory effort is even, unlabored, Respiratory pattern is regular, symmetrical. GI: Reports lower abdominal pain. Musculoskeletal: No deficits noted. Range of motion: intact in all extremities. Vital Signs: 09:01 BP 128 / 83; Pulse 98; Resp 17; Temp 98.3; Pulse Ox 98% ; Weight 97.52 kg; Height 5 ft. ap3 11 in. ; Pain 5/10; 11:08 BP 130 / 85; Pulse 89; Resp 15; Pulse Ox 99% ; cm10 11:30 BP 135 / 89; Pulse 73; Resp 15; Pulse Ox 97% ; cm10 09:01 Body Mass Index 29.99 (97.52 kg, 180.34 cm) ap3 09:01 Pain Scale: Adult ap3 ED Course: 08:47 Patient arrived in ED. cj3 09:03 Triage completed. ap3 09:04 Arm band placed on right wrist. ap3 09:13 Iesha Ramos, IVANNA is Primary Nurse. ld1 09:14 Dragan Nunez MD is Attending Physician. callum 09:55 Primary Nurse role handed off by Iesha Ramos, IVANNA cm10 09:55 Camille Farley, RN is Primary Nurse. cm10 10:05 Initial lab(s) drawn, by ok, sent to lab. Urine collected: clean catch specimen, zm cloudy. Inserted saline lock: 20 gauge in right antecubital area, using aseptic technique. Blood collected. Flushed with 10 mL NS. 10:05 Urinalysis w/ reflexes Sent. zm 10:05 CMP Sent. zm 10:05 CBC with Diff Sent. zm 10:47 CT Abd/Pelvis - IV Contrast Only In Process Unspecified. EDMS 11:08 Patient has correct armband on for positive identification. Bed in low position. Call cm10 light in reach. Pulse ox on. NIBP on. 12:20 Provided Education on: Follow-up instructions. cm10 12:20 No provider procedures requiring assistance completed. IV discontinued, intact, cm10 bleeding controlled, No redness/swelling at site. Pressure dressing applied. Administered Medications: 11:08 Drug: Famotidine IVP 20 mg IVP once; dilute with 10 mL 0.9% NaCl; give over 2 minutes cm10 Route: IVP; Site: right antecubital; 12:21 Follow up: Response: No adverse reaction cm10 11:08 Drug: Ondansetron IVP 4 mg IVP once; over 2 minutes Route: IVP; Site: right antecubital;cm10 12:21 Follow up: Response: No adverse reaction cm10 11:08 Drug: NS 0.9% IV 1000 ml IV at 1 bolus Per protocol; to be given as a bolus over 60 cm10 minutes Route: IV; Rate: 1 bolus; Site: right antecubital; 12:21 Follow up: Response: No adverse reaction; IV Status: Completed infusion; IV Intake: cm10 1000ml 11:09 Drug: morphine IVP or IV 4 mg IVP once over 4 mins Route: IVP; Infused Over: 4 mins; cm10 Site: right antecubital; 12:21 Follow up: Response: No adverse reaction cm10 Medication: 11:47 VIS not applicable for this client. cm10 Intake: 12:21 IV: 1000ml; Total: 1000ml. cm10 Outcome: 11:33 Discharge ordered by . callum 12:20 Discharged to home ambulatory, with significant other, cm10 12:20 Condition: good 12:20 Discharge instructions given to patient, Instructed on discharge instructions, follow up and referral plans. medication usage, Demonstrated understanding of instructions, follow-up care, medications, Prescriptions given X 3, 12:21 Patient left the ED. cm10 Signatures: Dispatcher [employer] Dragan Reinoso MD MD cha Prokisch, Amanda RN RN ap3 Iesha Ramos RN RN ld1 Claudia Farley Clarissa, RN RN cm10 Bambi Marroquin3
[2024-09-21 12:32] VITALS: TEMP 98.3
[2024-09-21 12:48] VITALS: BP 135/89; O2SAT 97
== END 2024-09-21 12:21 | disposition home or self-care (01) ==
LOC: ER 08:42
DX: R10.84 Generalized abdominal pain (principal); M25.572 Pain in left ankle and joints of left foot
CPT/HCPCS: 36415; 74177; 80053; 81001; 83690; 85025; 96361; 96374; 96375; 99284; J2405; J7030

== ENCOUNTER 2024-10-06 19:52 | Emergency (ER) | payer SELFPAY ==
[2024-10-06] MEDS ORDERED: methocarbamoL 750 MG TAB ONE (20:51)
[2024-10-06] MEDS ORDERED: HYDROCODONE/APAP 7.5/325 MG TAB ONE (20:52)
[2024-10-06] MEDS ORDERED: KETOROLAC 30 MG/ML INJ ONE (20:52)
--- NOTE | 2024-10-06 22:26 | ER ---
Nurse's Notes [facility] Name: William Blum Age: 24 yrs Sex: Male : 2000 Arrival Date: 10/06/2024 Time: 19:52 Bed 12 Private MD: Diagnosis: Contusion of thorax-right lateral Presentation: 10/06 19:58 Chief complaint: Patient states: My zero turn got stuck on a hill and i tried to push kd3 it. When i did, my feet gave out from under me ad i landed on my ribs on the mower. I landed on my right side. It hurts to take a breath in. Coronavirus screen: Vaccine status: Patient reports being unvaccinated. Ebola Screen: No symptoms or risks identified at this time. Initial Sepsis Screen: Does the patient meet any 2 criteria? No. Patient's initial sepsis screen is negative. Does the patient have a suspected source of infection? No. Patient's initial sepsis screen is negative. Risk Assessment: Do you want to hurt yourself or someone else? Patient reports no desire to harm self or others. Onset of symptoms was October 06, 2024. 19:58 Method Of Arrival: Ambulatory kd3 19:58 Acuity: BELKIS 3 kd3 Triage Assessment: 19:59 General: Appears uncomfortable, Behavior is calm, cooperative. Pain: Complains of pain kd3 in right lateral anterior chest. Neuro: Level of Consciousness is awake, alert, obeys commands, Oriented to person, place, time, situation. Historical: - Allergies: 19:59 No Known Allergies; kd3 - Immunization history:: Adult Immunizations up to date. - Infectious Disease History:: Denies. - Social history:: Smoking status: Patient reports the use of cigarette tobacco products, smokes one pack cigarettes per day. Screenin:17 [facility] ED Fall Risk Assessment (Adult) History of falling in the last 3 months, jb4 including since admission No falls in past 3 months (0 pts) Confusion or Disorientation No (0 pts) Intoxicated or Sedated No (0 pts) Impaired Gait No (0 pts) Mobility Assist Device Used No (0 pt) Altered Elimination No (0 pt) Score/Fall Risk Level 0 - 2 = Low Risk Oriented to surroundings, Maintained a safe environment. Abuse screen: Denies threats or abuse. Nutritional screening: No deficits noted. Tuberculosis screening: No symptoms or risk factors identified. Assessment: 20:45 General: Appears in no apparent distress. comfortable, Behavior is calm, cooperative, jb4 appropriate for age. Pain: Complains of pain in right ribs Pain does not radiate. Pain currently is 6 out of 10 on a pain scale. Quality of pain is described as stabbing. Neuro: Level of Consciousness is awake, alert, obeys commands, Oriented to person, place, time, situation. Cardiovascular: Patient's skin is warm and dry. Respiratory: Airway is patent Respiratory effort is even, unlabored, Respiratory pattern is regular, symmetrical. Derm: Skin is intact, Skin is pink, warm \T\ dry. Musculoskeletal: Circulation, motion, and sensation intact. Range of motion: intact in all extremities. 22:14 Reassessment: Patient appears in no apparent distress at this time. Patient and/or jb4 family updated on plan of care and expected duration. Pain level reassessed. Patient is alert, oriented x 3, equal unlabored respirations, skin warm/dry/pink. Patient states feeling better. Vital Signs: 19:57 Pulse 107; Resp 15; Temp 98.4(O); Pulse Ox 98% ; Weight 90.72 kg; Height 5 ft. 10 in. ; kd3 19:58 BP 137 / 90; kd3 22:17 BP 136 / 102; Pulse 76; Resp 16; Pulse Ox 100% on R/A; jb4 19:57 Body Mass Index 28.70 (90.72 kg, 177.8 cm) kd3 ED Course: 19:53 Patient arrived in ED. mr 19:59 Triage completed. kd3 19:59 Dragan Swenson PA is PHCP. cp 19:59 Arm band placed on left wrist. kd3 20:00 Dragan Nunez MD is Attending Physician. cp 22:12 Fazal Tineo, IVANNA is Primary Nurse. jb4 22:17 Patient has correct armband on for positive identification. Call light in reach. Side jb4 rails up X 1. Provided Education on: plan of care. 22:17 No provider procedures requiring assistance completed. Patient did not have IV access jb4 during this emergency room visit. 22:23 XRAY Ribs RIGHT In Process Unspecified. EDMS Administered Medications: 20:56 Drug: Ketorolac IM 30 mg IM once Route: IM; Site: right deltoid; jb4 20:57 Drug: Hydrocodone-Acetaminophen PO (7.5 mg-325 mg) 1 tabs PO once; RASS on ADMIN: jb4 Combtv4, Very Agttd3, Agttd2, Rstlss1, AlertClm0, Drwsy-1, Lt Sdtn-2, Mod Sdtn-3, Dp Sdtn-4, UnArsble-5 Route: PO; 20:57 Drug: Methocarbamol PO 750 mg PO once Route: PO; jb4 Medication: 22:17 VIS not applicable for this client. jb4 Outcome: 22:26 Discharge ordered by MD. cp 22:40 Discharged to home ambulatory, with family, jb4 22:40 Condition: stable 22:40 Discharge instructions given to patient, Instructed on discharge instructions, follow up and referral plans. no drinking with medication, no driving heavy equipment, medication usage, Demonstrated understanding of instructions, follow-up care, medications, Prescriptions given X 2, 22:41 Patient left the ED. jb4 Signatures: Dispatcher [employer] EDWI Alea Garcia, Reg Reg mr Dragan Swenson PA PA cp Bryson, James, RN RN jb4 Claudia Thornton RN RN kd3
--- NOTE | 2024-10-06 22:26 | EDPHYS ---
Physician Documentation [facility] Name: William Blum Age: 24 yrs Sex: Male : 2000 Arrival Date: 10/06/2024 Time: 19:52 Bed 12 Private MD: ED Physician Dragan Nunez HPI: 10/06 20:45 This 24 yrs old Male presents to ER via Ambulatory with complaints of Fall Injury, Rib cp pain, Shortness Of Breath. 20:45 Onset: The symptoms/episode began/occurred today. Patient is a 24-year-old male with no cp significant past medical history who presents to the emergency department with complaints of right side rib and chest pain. 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 Historical: - Allergies: 19:59 No Known Allergies; kd3 - Immunization history:: Adult Immunizations up to date. - Infectious Disease History:: Denies. - Social history:: Smoking status: Patient reports the use of cigarette tobacco products, smokes one pack cigarettes per day. ROS: 20:50 Constitutional: Negative for body aches, chills, fever, poor PO intake, cp 20:50 Eyes: Negative for injury, pain, redness, and discharge, cp 20:50 ENT: Negative for drainage from ear(s), ear pain, sore throat, difficulty swallowing, difficulty handling secretions, 20:50 Cardiovascular: Positive for chest pain, of the right lateral chest wall, Negative for edema, palpitations, 20:50 Respiratory: Positive for shortness of breath, at rest. Negative for cough, wheezing, 20:50 Abdomen/GI: Negative for abdominal pain, nausea, vomiting, and diarrhea, 20:50 Skin: Negative for cellulitis, rash, 20:50 All other systems are negative, Exam: 20:55 Constitutional: The patient appears in no acute distress, alert, awake, cp non-diaphoretic, non-toxic, well developed, well nourished, uncomfortable, 20:55 Head/Face: Normocephalic, atraumatic. cp 20:55 Eyes: Periorbital structures: appear normal, Conjunctiva: normal, no exudate, no injection, Sclera: no appreciated abnormality, Lids and lashes: appear normal, bilaterally, 20:55 ENT: External ear(s): are unremarkable, Nose: is normal, Mouth: Lips: moist, Oral mucosa: moist, Posterior pharynx: Airway: no evidence of obstruction, patent, 20:55 Neck: ROM/movement: is normal, is supple, without pain, no range of motions limitations, 20:55 Chest/axilla: Inspection: normal, Palpation: crepitus, is not appreciated, tenderness, that is severe, of the right lateral anterior chest and right lateral posterior chest, 20:55 Cardiovascular: Rate: normal, Rhythm: regular, Edema: is not appreciated, JVD: is not appreciated, 20:55 Respiratory: the patient does not display signs of respiratory distress, Respirations: normal, no use of accessory muscles, no retractions, labored breathing, is not present, Breath sounds: are clear throughout, no decreased breath sounds, no stridor, no wheezing, 20:55 Abdomen/GI: Inspection: abdomen appears normal, Palpation: abdomen is soft and non-tender, in all quadrants, 20:55 Back: no vertebral tenderness to palpation, 20:55 Skin: no rash present. 20:55 Neuro: Orientation: to person, place \T\ time. Mentation: is normal, Motor: moves all fours, strength is normal, Sensation: is normal, Vital Signs: 19:57 Pulse 107; Resp 15; Temp 98.4(O); Pulse Ox 98% ; Weight 90.72 kg; Height 5 ft. 10 in. ; kd3 19:58 BP 137 / 90; kd3 22:17 BP 136 / 102; Pulse 76; Resp 16; Pulse Ox 100% on R/A; jb4 19:57 Body Mass Index 28.70 (90.72 kg, 177.8 cm) kd3 MDM: 20:11 Medical Screening Exam initiated cp 22:25 Data reviewed: vital signs, nurses notes, radiologic studies, plain films, and as a cp result, I will discharge patient. 22:25 Differential diagnosis: contusion, fracture, pneumothorax. I considered the following cp discharge prescriptions or medication management in the emergency department Medications were administered in the Emergency Department. See MAR. Independent interpretation of the following test(s) in the Emergency Department X-Ray: My interpretation is images of right side ribs negative for fracture. Counseling: I had a detailed discussion with the patient and/or guardian regarding the historical points, exam findings, and any diagnostic results supporting the discharge/admit diagnosis, radiology results, to return to the emergency department if symptoms worsen or persist or if there are any questions or concerns that arise at home. Response to treatment: the patient's symptoms have markedly improved after treatment, and as a result, I will discharge patient. 10/06 20:42 Order name: XRAY Ribs RIGHT cp Administered Medications: 20:56 Drug: Ketorolac IM 30 mg IM once Route: IM; Site: right deltoid; jb4 20:57 Drug: Hydrocodone-Acetaminophen PO (7.5 mg-325 mg) 1 tabs PO once; RASS on ADMIN: jb4 Combtv4, Very Agttd3, Agttd2, Rstlss1, AlertClm0, Drwsy-1, Lt Sdtn-2, Mod Sdtn-3, Dp Sdtn-4, UnArsble-5 Route: PO; 20:57 Drug: Methocarbamol PO 750 mg PO once Route: PO; jb4 Disposition Summary: 10/06/24 22:26 Discharge Ordered Notes: Location: Home cp Problem: new cp Symptoms: have improved cp Condition: Stable cp Diagnosis - Contusion of thorax - right lateral cp Followup: cp - With: Private Physician - When: 2 - 3 days - Reason: Worsening of condition Discharge Instructions: - Discharge Summary Sheet cp - Rib Contusion cp - Chest Contusion, Adult cp Forms: - Medication Reconciliation Form cp - Antibiotic Education cp - Prescription Opioid Use cp - Patient Portal Instructions cp - Leadership Thank You Letter cp Prescriptions: - Anaprox DS 550 mg Oral Tablet - take 1 tablet ORAL route every 12 hours As needed; 20 tablet; Refills: 0, cp Product Selection Permitted - methocarbamol 750 mg Oral tablet - take 1 tablet ORAL route 3 times per day; 30 tablet; Refills: 0, Product cp Selection Permitted Signatures: Dispatcher [employer] EDDragan Almazan PA PA cp Bryson, James, RN RN jb4 Claudia Thornton RN RN kd3
[2024-10-06 22:46] VITALS: TEMP 98.4
--- NOTE | 2024-10-06 22:47 | RAD REPORT ---
EXAM:Ribs Right CLINICAL HISTORY: Right rib pain FINDINGS: No fracture seen
[2024-10-06 22:48] VITALS: BP 136/102; O2SAT 100
== END 2024-10-06 22:41 | disposition home or self-care (01) ==
LOC: ER 19:52
DX: S20.211A Contusion of right front wall of thorax, initial encounter (principal); F17.210 Nicotine dependence, cigarettes, uncomplicated
CPT/HCPCS: 96372; 99284